=== PATIENT | male | born 1975 | race African-American/Black ===

== ENCOUNTER 2017-11-22 17:00 | Emergency (ER) | payer OTHER ==
[~2017-11-22] VITALS: Ht 185.4 cm; Wt 70.6 kg
[~2017-11-22 17:00] MED LIST: AMOX TR-K CLV1 EAC4 PO; COUMADIN1 MG PO; ENDOCET 5-3251 EACH PO; FAMOTIDINE20 MG PO; IBUPROFEN400 MG PO; LOVENOX40 MG/0.4 SC; METOPROLOL SUCC25 MG PO; NOHOMEMEDS; NORCO 5/3251 TABLET PO; PERCOCET 5/31 TABLET PO; PROMETHAZINE HC25 M1 PO; TYLENOL EXTRA500 MG PO; VITAMIN D250000 UNIT PO; WARFARIN SODIUM5 MG PO; XARELTO15 MG PO
[2017-11-22 20:53] LABS: APPEARANCE CLEAR ((CLEAR)); BILIRUBIN NEGATIVE; BLOOD NEGATIVE; COLOR YELLOW ((YELLOW)); GLUCOSE (STRIP) NEGATIVE; KETONES NEGATIVE; LEUKOCYTES NEGATIVE; NITRITE NEGATIVE; PROTEIN (STRIP) NEGATIVE; SPECIFIC GRAVITY 1.021 (1.000-1.030); UCUL ADDED? NO; UROBILINOGEN 0.2 MG/DL (0.2-1.0)
[2017-11-22] MEDS ORDERED: ULTRAM50 MG PO (21:23)
[2017-11-22 21:26] VITALS: BP 126/76
== END 2017-11-22 21:27 | disposition home or self-care (01) ==
LOC: EME 17:00
PROVIDERS: Nurse Practitioner Family
DX: R10.2 Pelvic and perineal pain (principal); J44.9 Chronic obstructive pulmonary disease, unspecified; I25.2 Old myocardial infarction; Z86.718 Personal history of other venous thrombosis and embolism; Z86.711 Personal history of pulmonary embolism; F17.200 Nicotine dependence, unspecified, uncomplicated
CPT/HCPCS: 81003; 93971; 99281; 99283